=== PATIENT | female | born 1975 ===

== ENCOUNTER 2018-01-20 21:17 | Inpatient (IN) | payer SELFPAY ==
[2018-01-20] MEDS ORDERED: Piperacillin/Tazobact 3.375 GM in Sodium Chloride 0.9% 100 ML IV STA (22:03)
[2018-01-20] MEDS ORDERED: Sodium Chloride 0.9% 1,000 ML IV STA (22:28)
--- NOTE | 2018-01-20 22:45 | ED PDOC ---
Lower Extremity Pain/Injury Time Seen by Provider: 01/20/18 21:44 Chief Complaint (Nursing): Abnormal Skin Integrity Chief Complaint (Provider): Fever, and left lower extrm swelling History Per: Patient History/Exam Limitations: no limitations Onset/Duration Of Symptoms: Days (x2 ) Current Symptoms Are (Timing): Still Present Additional Complaint(s): Petra Blank is a 42 year old female, with no significant past medical history, who presents to the emergency department complaining of fever and left lower extremity swelling onset for x2 days. Patient states lower extremities are painful and warm to touch. She reports developing fever and chills afterwards. Patient is undomiciled. She denies any injuries. No further medical complaints. PMD: None provided. Past Medical History Reviewed: Historical Data, Nursing Documentation, Vital Signs Vital Signs: Last Vital Signs Temp 102.1 F H 01/20/18 21:33 Pulse 104 H 01/20/18 21:33 Resp 16 01/20/18 21:33 BP 121/67 01/20/18 21:33 Pulse Ox 98 01/20/18 21:33 - Medical History PMH: No Chronic Diseases - Surgical History Surgical History: No Surg Hx - Family History Family History: States: Unknown Family Hx - Home Medications Home Medications: Ambulatory Orders Medication Instructions Recorded No Known Home Med 01/21/18 - Allergies Allergies/Adverse Reactions: Allergies Allergy/AdvReac Type Severity Reaction Status Date / Time No Known Allergies Allergy Verified 01/20/18 21:33 Review of Systems ROS Statement: Except As Marked, All Systems Reviewed And Found Negative Constitutional: Positive for: Fever, Chills Musculoskeletal: Positive for: Leg Pain (left leg, redness and swelling) Physical Exam - Reviewed Nursing Documentation Reviewed: Yes Vital Signs Reviewed: Yes - Physical Exam Appears: Positive for: Non-toxic. Negative for: Well (febrile) Head Exam: Positive for: ATRAUMATIC, NORMOCEPHALIC Skin: Positive for: Normal Color, Warm, Dry. Negative for: Rash Eye Exam: Positive for: Normal appearance, EOMI, PERRL Neck: Positive for: Painless ROM Cardiovascular/Chest: Positive for: Tachycardia. Negative for: Murmur Respiratory: Positive for: Normal Breath Sounds. Negative for: Respiratory Distress Pulses-Dorsalis Pedis (L): 2+ Pulses-Dorsalis Pedis (R): 2+ Gastrointestinal/Abdominal: Positive for: Normal Exam, Soft. Negative for: Tenderness Back: Negative for: L CVA Tenderness, R CVA Tenderness, Vertebral Tenderness Extremity: Positive for: Normal ROM (lower extremities), Capillary Refill (< 2sec to toes), Swelling (left lower extremity edemitus. Tibial surface ecchymotic and erythematous.). Negative for: Deformity, Other (Chang's sign negative) Neurologic/Psych: Positive for: Alert, Oriented. Negative for: Motor/Sensory Deficits - Laboratory Results Result Diagrams: 01/21/18 05:40 01/21/18 05:40 - ECG O2 Sat by Pulse Oximetry: 98 (RA) Pulse Ox Interpretation: Normal Medical Decision Making Medical Decision Making: Time: 21:44 Initial Impression: 42 y/o female with fever and left lower extremity cellulitis. Initial Plan: --CMP --Lact Acid, Plasma --Urine --Urine dipstick --CBC w/ differential --PTT --PT --Sodium Chloride 1,000 ml IV 1,000 mls/hr --Toradol 15 mg IV --Tylenol 325mg tab 975 mg PO --Vancomycin Inj 1 gm Sodium Chloride 0.9% 250 ml IVPB --Zosyn 3.375 gm Sodium Chloride 0.9% 100 ml IV --Blood culture --Urine culture --Urinalysis --Duplex Lower Extremity Vein Left [US] --Reevaluation Time: 23:00 Duplex Lower Extremity Vein Left [US] FINDINGS: Deep veins: Unremarkable. No DVT in the visualized common femoral, femoral, proximal deep femoral or popliteal veins. The veins demonstrate normal color flow, are normally compressible, with normal phasic flow and/or augmentation response. Soft tissues: Nonspecific enlarged left groin lymph node measuring 2.1 x 1.0 x 4.0 cm. No popliteal cyst. IMPRESSION: No left lower extremity evidence of deep venous thrombosis. Nonspecific left groin lymph node. Time: 23:54 --Patient's US and labs reviewed. Labs show significant elevation of WBC count. Patient will be admitted for treatment of cellulitis and lymphangitis under Dr. Huertas, the hospitalist veterans contact representative. ----- Scribe Attestation: Documented by Omi Black, acting as a scribe for Ananth Elizabeth MD. Provider Scribe Attestation: All medical record entries made by the Scribe were at my direction and personally dictated by me. I have reviewed the chart and agree that the record accurately reflects my personal performance of the history, physical exam, medical decision making, and the department course for this patient. I have also personally directed, reviewed, and agree with the discharge instructions and disposition. Disposition - Clinical Impression Clinical Impression: Cellulitis of left lower extremity - Patient ED Disposition Is Patient to be Admitted: Yes Discussed With : Aubrey Huertas - Disposition Disposition Time: 23:54 Condition: FAIR - Pt Status Changed To: Hospital Disposition Of: Inpatient - Admit Certification Admit to Inpatient:: After my assessment, the patient will require hospitalization for at least two midnights. This is because of the severity of symptoms shown, intensity of services needed, and/or the medical risk in this patient being treated as an outpatient.
--- NOTE | 2018-01-20 23:00 | US ---
EXAM: US Duplex Left Lower Extremity Veins CLINICAL HISTORY: 42 years old, female; Signs and symptoms; Swelling of limb; Lower extremity, left; Additional info: Leg swelling TECHNIQUE: Real-time duplex ultrasound scan of the left lower extremity veins integrating B-mode two-dimensional vascular structure, Doppler spectral analysis, color flow Doppler imaging and compression. COMPARISON: No relevant prior studies available. FINDINGS: Deep veins: Unremarkable. No DVT in the visualized common femoral, femoral, proximal deep femoral or popliteal veins. The veins demonstrate normal color flow, are normally compressible, with normal phasic flow and/or augmentation response. Soft tissues: Nonspecific enlarged left groin lymph node measuring 2.1 x 1.0 x 4.0 cm. No popliteal cyst. IMPRESSION: No left lower extremity evidence of deep venous thrombosis. Nonspecific left groin lymph node.
[2018-01-20 23:02] LABS: SQUAMOUS EPITHIAL 4 /hpf (0-5); URINE BILIRUBIN NEGATIVE (NEGATIVE); URINE BLOOD SMALL (NEGATIVE); URINE CLARITY CLOUDY (Clear); URINE COLOR AMBER (YELLOW); URINE GLUCOSE (UA) NEG (Normal); URINE LEUKOCYTE ESTERASE NEG Leu/uL (Negative); URINE PROTEIN 100 mg/dL (NEGATIVE)
[2018-01-20 23:19] LABS: BASO % 0.2 % (0.0-2.0); HEMOGLOBIN 14.7 g/dL (12.0-16.0); LYMPH # 0.7 K/uL (1.0-4.3); LYMPH % 4.5 % (20.0-40.0); MEAN CELL VOLUME 81.2 fl (81.0-99.0); MEAN CORPUSCULAR HEMOGLOBIN 27.5 pg (27.0-31.0); MEAN CORPUSCULAR HGB CONC 33.9 g/dL (33.0-37.0); MEAN PLATELET VOLUME 8.5 fl (7.2-11.7); MONO # 0.6 K/uL (0.0-0.8); MONO % 3.8 % (0.0-10.0); NEUT # 14.9 K/uL (1.8-7.0); NEUT % 91.5 % (50.0-75.0); NRBC % 0.1 % (0.0-0.0); PLATELET COUNT 250 K/uL (130-400); RBC 5.35 Mil/uL (3.80-5.20); RED CELL DISTRIBUTION WIDTH 14.6 % (11.5-14.5); WHITE BLOOD COUNT 16.3 K/uL (4.8-10.8)
[2018-01-20 23:31] LABS: ALBUMIN 4.1 g/dL (3.5-5.0); ALT/SGPT 33 U/L (9-52); AST/SGOT 32 U/L (14-36); BLOOD UREA NITROGEN 17 mg/dl (7-17); GFR AFRICAN-AMERICAN > 60; GFR NON-AFRICAN AMERICAN > 60
[2018-01-20 23:49] LABS: INR 1.3 (0.9-1.2); PARTIAL THROMBOPLASTIN TIME 29.7 Seconds (25.6-37.1); PROTHROMBIN TIME 14.1 Seconds (9.8-13.1)
[2018-01-21 01:07] LABS: ANISOCYTOSIS SLIGHT; BANDS 5 % (0-2); BASOPHIL 1 % (0-2); HYPOCHROMIC SLIGHT; LYMPHOCYTE 7 % (20-50); MONOCYTE 2 % (0-10); NEUTROPHIL 85 % (42-75); PLATELET ESTIMATE NORMAL (NORMAL); STOMATOCYTES SLIGHT; TEARDROP CELLS SLIGHT; TOTAL CELLS COUNTED 100
[2018-01-21] MEDS: Sodium Chloride 0.9% 1,000 ML IV SCH ×3 (01:18→19:42)
[2018-01-21] MEDS ORDERED: Potassium Chloride 20 mEq ER Tab PO ONE (02:06)
--- NOTE | 2018-01-21 02:47 | CP.PCM.HP ---
History of Present Illness - History of Present Illness History of Present Illness: CC: left leg pain This is a 42 yo homeless female who denies any past medical history, presenting to the ED with the complaint of fever, chills, and left lower extremity, swelling, and pain for the last 2 days. She states that the left leg swelling began abruptly, accompanied by a large red area. She has never had this before. She denies any injury/trauma to the area. In the ED, the patient was found to have large area of cellulitis of the left anterior tibial area with significant erythema. There is no fluctuance to suggest an abscess. The patient was also found to have a fever of 102.1, WBC count of 16.3 with 5 bands. Patient was also found to have mildly depressed potassium of 3.3. The patient is being admitted for left lower extremity cellulitis with further infectious workup to be obtained in AM. Patient denies chest pain, shortness of breath, nausea, vomiting, diarrhea, headache. All of the patient's questions were answered at the bedside. PMD: None Present on Admission - Present on Admission Any Indicators Present on Admission: No History of DVT/PE: No History of Uncontrolled Diabetes: No Review of Systems - Review of Systems Review of Systems: A 12 point review of systems was conducted and found to be negative other than what was mentioned in the HPI. Past Patient History - Infectious Disease Hx of Infectious Diseases: None - Past Medical History & Family History Past Medical History?: No Past Family History: Reviewed and not pertinent - Past Social History Smoking Status: Never Smoked Chewing Tobacco Use: No Cigar Use: No Alcohol: None Drugs: Denies Home Situation {Lives}: Homeless - PSYCHIATRIC Hx Substance Use: No - SURGICAL HISTORY Hx Surgeries: No - ANESTHESIA Hx Anesthesia: No Meds Allergies/Adverse Reactions: Allergies Allergy/AdvReac Type Severity Reaction Status Date / Time No Known Allergies Allergy Verified 01/20/18 21:33 Physical Exam - Additional Findings Additional findings: Physical exam: Constitutional- cooperative, awake, alert Head- NCAT, PERRL Eye- PERRL, EOMI ENT- normal exam, MMM. Neck- normal inspection, supple, no JVD Respiratory- CTAB, no wheezes rales rhonchi Cardiovascular- RRR, +S1, +S2 no MRG GI/Abdominal- normal bowel sounds, soft, no mass, no hsm Skin- warm, dry Extremities Exam- + Large erythematous, warm area without fluctuance, consistent with cellulitis measuring approx 7 cm x 4 cm at the anterior tibial area of the left leg. normal capillary refill, normal inspection Neurological Exam- alert, awake, oriented Psych- normal mood, normal affect Results - Vital Signs Recent Vital Signs: Last Vital Signs Temp 98.8 F 01/21/18 01:38 Pulse 90 01/21/18 01:38 Resp 16 01/20/18 21:33 BP 104/52 L 01/21/18 01:38 Pulse Ox 98 01/20/18 23:59 - Labs Result Diagrams: 01/20/18 23:15 01/20/18 23:15 Labs: Laboratory Results - last 24 hr 01/20/18 01/20/18 01/20/18 22:50 23:15 23:15 WBC 16.3 H RBC 5.35 H Hgb 14.7 Hct 43.4 MCV 81.2 MCH 27.5 MCHC 33.9 RDW 14.6 H Plt Count 250 MPV 8.5 Neut % (Auto) 91.5 H Lymph % (Auto) 4.5 L [place] % (Auto) 3.8 Eos % (Auto) 0.0 Baso % (Auto) 0.2 Neut # (Auto) 14.9 H Lymph # (Auto) 0.7 L [place] # (Auto) 0.6 Eos # (Auto) 0.0 Baso # (Auto) 0.0 Neutrophils % (Manual) 85 H Band Neutrophils % 5 H Lymphocytes % (Manual) 7 L Monocytes % (Manual) 2 Basophils % (Manual) 1 Platelet Estimate Normal Hypochromasia (manual) Slight Anisocytosis (manual) Slight Tear Drop Cells Slight Stomatocytes Slight PT INR APTT Sodium 134 Potassium 3.3 L Chloride 95 L Carbon Dioxide 27 Anion Gap 15 BUN 17 Creatinine 0.9 Est GFR ( Amer) > 60 Est GFR (Non-Af Amer) > 60 Random Glucose 115 H Lactic Acid Calcium 9.0 Total Bilirubin 0.6 AST 32 ALT 33 Alkaline Phosphatase 73 Total Protein 8.0 Albumin 4.1 Globulin 4.0 H Albumin/Globulin Ratio 1.0 Urine Color Kathrine Urine Clarity Cloudy Urine pH 5.0 Ur Specific [place] 1.033 H Urine Protein 100 Urine Glucose (UA) Neg Urine Ketones 80 Urine Blood Small Urine Nitrate Negative Urine Bilirubin Negative Urine Urobilinogen 4.0 H Ur Leukocyte Esterase Neg Urine RBC (Auto) 4 H Urine Microscopic WBC 3 Ur Squamous Epith Cells 4 Hyaline Casts 3-5 H 01/20/18 01/20/18 23:15 23:15 WBC RBC Hgb Hct MCV MCH MCHC RDW Plt Count MPV Neut % (Auto) Lymph % (Auto) [place] % (Auto) Eos % (Auto) Baso % (Auto) Neut # (Auto) Lymph # (Auto) [place] # (Auto) Eos # (Auto) Baso # (Auto) Neutrophils % (Manual) Band Neutrophils % Lymphocytes % (Manual) Monocytes % (Manual) Basophils % (Manual) Platelet Estimate Hypochromasia (manual) Anisocytosis (manual) Tear Drop Cells Stomatocytes PT 14.1 H INR 1.3 H APTT 29.7 Sodium Potassium Chloride Carbon Dioxide Anion Gap BUN Creatinine Est GFR ( Amer) Est GFR (Non-Af Amer) Random Glucose Lactic Acid 1.1 Calcium Total Bilirubin AST ALT Alkaline Phosphatase Total Protein Albumin Globulin Albumin/Globulin Ratio Urine Color Urine Clarity Urine pH Ur Specific [place] Urine Protein Urine Glucose (UA) Urine Ketones Urine Blood Urine Nitrate Urine Bilirubin Urine Urobilinogen Ur Leukocyte Esterase Urine RBC (Auto) Urine Microscopic WBC Ur Squamous Epith Cells Hyaline Casts Assessment & Plan - Assessment and Plan (Free Text) Plan: ASSESSMENT/PLAN 42 yo homeless female admitted for cellulitis of the left lower extremity 1) Cellulitis of the left lower extremity, with fever 102, bandemia,and leukocytosis - Admit to med/surg - consultation with Dr. Alfredo in AM - Vancomycin 1 gram IVPB q 12 hours - Rocephin 1 gram IVPB - Blood cultures pending - Repeat labs in AM - regular diet - Pain control with toradol - Tylenol PRN for fever - Monitor vitals closely 2) Hypokalemia- acute - due to poor gi intake - replete po 3) DVT prophylaxis - heparin sq
[2018-01-21 06:02] LABS: HEMOGLOBIN 13.1 g/dL (12.0-16.0); MEAN CELL VOLUME 82.8 fl (81.0-99.0); MEAN CORPUSCULAR HEMOGLOBIN 27.5 pg (27.0-31.0); MEAN CORPUSCULAR HGB CONC 33.1 g/dL (33.0-37.0); RBC 4.76 Mil/uL (3.80-5.20); RED CELL DISTRIBUTION WIDTH 14.5 % (11.5-14.5); WHITE BLOOD COUNT 14.4 K/uL (4.8-10.8)
[2018-01-21 06:21] LABS: BLOOD UREA NITROGEN 18 mg/dl (7-17); GFR AFRICAN-AMERICAN > 60; GFR NON-AFRICAN AMERICAN > 60
--- NOTE | 2018-01-21 07:46 | RAD ---
HISTORY: admit COMPARISON: No prior. FINDINGS: LUNGS: No active pulmonary disease. PLEURA: No significant pleural effusion identified, no pneumothorax apparent. CARDIOVASCULAR: Normal. OSSEOUS STRUCTURES: No significant abnormalities. VISUALIZED UPPER ABDOMEN: Normal. OTHER FINDINGS: None. IMPRESSION: No acute cardiopulmonary disease appreciated.
--- NOTE | 2018-01-21 18:35 | CP.PCM.CON ---
History of Present Illness - History of Present Illness History of Present Illness: 42 yo homeless female who denies any past medical history, presenting to the ED with the complaint of fever, chills, and left lower extremity, swelling, and pain for the last 2 days. She states that the left leg swelling began abruptly, accompanied by a large red area. She has never had this before. She denies any injury/trauma to the area. In the ED, the patient was found to have large area of cellulitis of the left anterior tibial area with significant erythema. There is no fluctuance to suggest an abscess. The patient was also found to have a fever of 102.1, WBC count of 16.3 with 5 bands. Patient was also found to have mildly depressed potassium of 3.3. The patient is being admitted for left lower extremity cellulitis with further infectious workup to be obtained in AM. Patient denies chest pain, shortness of breath, nausea, vomiting, diarrhea, headache. All of the patient's questions were answered at the bedside. PMD: None Present on Admission - Present on Admission Any Indicators Present on Admission: No History of DVT/PE: No History of Uncontrolled Diabetes: No Review of Systems - Review of Systems Review of Systems: A 12 point review of systems was conducted and found to be negative other than what was mentioned in the HPI. Review of Systems - Review of Systems All systems: reviewed and no additional remarkable complaints except - Constitutional Constitutional: As Per HPI Past Patient History - Infectious Disease Hx of Infectious Diseases: None - Past Medical History & Family History Past Medical History?: No - Past Social History Smoking Status: Never Smoked - MUSCULOSKELETAL/RHEUMATOLOGICAL Hx Falls: No - PSYCHIATRIC Hx Substance Use: No - SURGICAL HISTORY Hx Surgeries: No - ANESTHESIA Hx Anesthesia: No Meds Allergies/Adverse Reactions: Allergies Allergy/AdvReac Type Severity Reaction Status Date / Time No Known Allergies Allergy Verified 01/20/18 21:33 - Medications Medications: Current Medications Acetaminophen (Tylenol 325mg Tab) 650 mg PO Q6 PRN PRN Reason: Fever >100.4 F Last Admin: 01/21/18 15:59 Dose: 650 mg Heparin Sodium (Porcine) (Heparin) 5,000 units SC Q12 DRU PRN Reason: Protocol Last Admin: 01/21/18 09:21 Dose: 5,000 units Sodium Chloride (Sodium Chloride 0.9%) 1,000 mls @ 125 mls/hr IV .Q8H DRU Last Admin: 01/21/18 07:44 Dose: 125 mls/hr Vancomycin HCl 1 gm/ Sodium (Chloride) 250 mls @ 166.667 mls/hr IVPB Q12 DRU PRN Reason: Protocol Last Admin: 01/21/18 09:26 Dose: 166.667 mls/hr Ceftriaxone Sodium 1 gm/ (Sodium Chloride) 100 mls @ 100 mls/hr IVPB DAILY DRU PRN Reason: Protocol Last Admin: 01/21/18 09:25 Dose: 100 mls/hr Ketorolac Tromethamine (Toradol) 15 mg IVP Q6 PRN PRN Reason: Pain, moderate (4-7) Physical Exam - Constitutional Appears: Chronically Ill - Head Exam Head Exam: NORMAL INSPECTION - Eye Exam Eye Exam: PERRL - ENT Exam ENT Exam: Mucous Membranes Dry - Neck Exam Neck exam: Negative for: Lymphadenopathy - Respiratory Exam Respiratory Exam: Decreased Breath Sounds - Cardiovascular Exam Cardiovascular Exam: REGULAR RHYTHM - GI/Abdominal Exam GI & Abdominal Exam: Diminished Bowel Sounds - Rectal Exam Rectal Exam: Deferred - Exam Exam: NORMAL INSPECTION - Extremities Exam Extremities exam: Positive for: pedal edema, pedal pulses present - Back Exam Back exam: absent: CVA tenderness (L), CVA tenderness (R) - Neurological Exam Neurological exam: Alert, CN II-XII Intact, Oriented x3, Reflexes Normal - Psychiatric Exam Psychiatric exam: Normal Mood - Skin Skin Exam: Dry, Erythema Results - Vital Signs Recent Vital Signs: Last Vital Signs Temp 103 F H 01/21/18 16:31 Pulse 102 H 01/21/18 16:31 Resp 18 01/21/18 16:31 BP 125/88 01/21/18 16:31 Pulse Ox 98 01/21/18 16:31 - Labs Result Diagrams: 01/22/18 05:35 01/22/18 05:35 Labs: Laboratory Results - last 24 hr 01/20/18 01/20/18 01/20/18 22:50 23:15 23:15 WBC 16.3 H RBC 5.35 H Hgb 14.7 Hct 43.4 MCV 81.2 MCH 27.5 MCHC 33.9 RDW 14.6 H Plt Count 250 MPV 8.5 Neut % (Auto) 91.5 H Lymph % (Auto) 4.5 L [place] % (Auto) 3.8 Eos % (Auto) 0.0 Baso % (Auto) 0.2 Neut # (Auto) 14.9 H Lymph # (Auto) 0.7 L [place] # (Auto) 0.6 Eos # (Auto) 0.0 Baso # (Auto) 0.0 Neutrophils % (Manual) 85 H Band Neutrophils % 5 H Lymphocytes % (Manual) 7 L Monocytes % (Manual) 2 Basophils % (Manual) 1 Platelet Estimate Normal Hypochromasia (manual) Slight Anisocytosis (manual) Slight Tear Drop Cells Slight Stomatocytes Slight PT INR APTT Sodium 134 Potassium 3.3 L Chloride 95 L Carbon Dioxide 27 Anion Gap 15 BUN 17 Creatinine 0.9 Est GFR ( Amer) > 60 Est GFR (Non-Af Amer) > 60 Random Glucose 115 H Lactic Acid Calcium 9.0 Total Bilirubin 0.6 AST 32 ALT 33 Alkaline Phosphatase 73 Total Protein 8.0 Albumin 4.1 Globulin 4.0 H Albumin/Globulin Ratio 1.0 Urine Color Kathrine Urine Clarity Cloudy Urine pH 5.0 Ur Specific [place] 1.033 H Urine Protein 100 Urine Glucose (UA) Neg Urine Ketones 80 Urine Blood Small Urine Nitrate Negative Urine Bilirubin Negative Urine Urobilinogen 4.0 H Ur Leukocyte Esterase Neg Urine RBC (Auto) 4 H Urine Microscopic WBC 3 Ur Squamous Epith Cells 4 Hyaline Casts 3-5 H 01/20/18 01/20/18 01/21/18 23:15 23:15 05:40 WBC 14.4 H RBC 4.76 Hgb 13.1 Hct 39.4 MCV 82.8 MCH 27.5 MCHC 33.1 RDW 14.5 Plt Count 211 MPV Neut % (Auto) Lymph % (Auto) [place] % (Auto) Eos % (Auto) Baso % (Auto) Neut # (Auto) Lymph # (Auto) [place] # (Auto) Eos # (Auto) Baso # (Auto) Neutrophils % (Manual) Band Neutrophils % Lymphocytes % (Manual) Monocytes % (Manual) Basophils % (Manual) Platelet Estimate Hypochromasia (manual) Anisocytosis (manual) Tear Drop Cells Stomatocytes PT 14.1 H INR 1.3 H APTT 29.7 Sodium Potassium Chloride Carbon Dioxide Anion Gap BUN Creatinine Est GFR ( Amer) Est GFR (Non-Af Amer) Random Glucose Lactic Acid 1.1 Calcium Total Bilirubin AST ALT Alkaline Phosphatase Total Protein Albumin Globulin Albumin/Globulin Ratio Urine Color Urine Clarity Urine pH Ur Specific [place] Urine Protein Urine Glucose (UA) Urine Ketones Urine Blood Urine Nitrate Urine Bilirubin Urine Urobilinogen Ur Leukocyte Esterase Urine RBC (Auto) Urine Microscopic WBC Ur Squamous Epith Cells Hyaline Casts 01/21/18 05:40 WBC RBC Hgb Hct MCV MCH MCHC RDW Plt Count MPV Neut % (Auto) Lymph % (Auto) [place] % (Auto) Eos % (Auto) Baso % (Auto) Neut # (Auto) Lymph # (Auto) [place] # (Auto) Eos # (Auto) Baso # (Auto) Neutrophils % (Manual) Band Neutrophils % Lymphocytes % (Manual) Monocytes % (Manual) Basophils % (Manual) Platelet Estimate Hypochromasia (manual) Anisocytosis (manual) Tear Drop Cells Stomatocytes PT INR APTT Sodium 134 Potassium 3.3 L Chloride 100 Carbon Dioxide 28 Anion Gap 9 L BUN 18 H Creatinine 1.0 Est GFR ( Amer) > 60 Est GFR (Non-Af Amer) > 60 Random Glucose 96 Lactic Acid Calcium 8.0 L Total Bilirubin AST ALT Alkaline Phosphatase Total Protein Albumin Globulin Albumin/Globulin Ratio Urine Color Urine Clarity Urine pH Ur Specific [place] Urine Protein Urine Glucose (UA) Urine Ketones Urine Blood Urine Nitrate Urine Bilirubin Urine Urobilinogen Ur Leukocyte Esterase Urine RBC (Auto) Urine Microscopic WBC Ur Squamous Epith Cells Hyaline Casts Assessment & Plan (1) Cellulitis of left lower extremity Status: Acute
[2018-01-22] MEDS: Sodium Chloride 0.9% 1,000 ML IV SCH (00:30)
[2018-01-22 06:28] LABS: HEMOGLOBIN 12.6 g/dL (12.0-16.0); MEAN CELL VOLUME 81.2 fl (81.0-99.0); MEAN CORPUSCULAR HGB CONC 34.4 g/dL (33.0-37.0); RBC 4.5 Mil/uL (3.80-5.20); RED CELL DISTRIBUTION WIDTH 14.7 % (11.5-14.5); WHITE BLOOD COUNT 10.4 K/uL (4.8-10.8)
[2018-01-22 06:36] LABS: BLOOD UREA NITROGEN 10 mg/dl (7-17); CALCIUM 8.2 mg/dL (8.4-10.2); GFR AFRICAN-AMERICAN > 60; GFR NON-AFRICAN AMERICAN > 60
[2018-01-22 08:24] VITALS: BP 149/84; PULSE 83; RESP 20; TEMP 100.8; O2SAT 97
--- NOTE | 2018-01-22 11:16 | CP.PCM.CON ---
History of Present Illness - History of Present Illness History of Present Illness: 42 yo homeless female who denies any past medical history, presenting to the ED with the complaint of fever, chills, and left lower extremity, swelling, and pain for the last 2 days. She states that the left leg swelling began abruptly, accompanied by a large red area. She has never had this before. She denies any injury/trauma to the area. In the ED, the patient was found to have large area of cellulitis of the left anterior tibial area with significant erythema. There is no fluctuance to suggest an abscess. The patient was also found to have a fever of 102.1, WBC count of 16.3 with 5 bands. Patient was also found to have mildly depressed potassium of 3.3. The patient is being admitted for left lower extremity cellulitis with further infectious workup to be obtained in AM. Patient denies chest pain, shortness of breath, nausea, vomiting, diarrhea, headache. All of the patient's questions were answered at the bedside. PMD: None Present on Admission - Present on Admission Any Indicators Present on Admission: No History of DVT/PE: No History of Uncontrolled Diabetes: No Review of Systems - Review of Systems Review of Systems: A 12 point review of systems was conducted and found to be negative other than what was mentioned in the HPI. Past Patient History - Infectious Disease Hx of Infectious Diseases: None - Past Medical History & Family History Past Medical History?: No - Past Social History Smoking Status: Never Smoked - MUSCULOSKELETAL/RHEUMATOLOGICAL Hx Falls: No - PSYCHIATRIC Hx Substance Use: No - SURGICAL HISTORY Hx Surgeries: No - ANESTHESIA Hx Anesthesia: No Meds Allergies/Adverse Reactions: Allergies Allergy/AdvReac Type Severity Reaction Status Date / Time No Known Allergies Allergy Verified 01/20/18 21:33 - Medications Medications: Current Medications Heparin Sodium (Porcine) (Heparin) 5,000 units SC Q12 DRU PRN Reason: Protocol Last Admin: 01/22/18 09:02 Dose: 5,000 units Sodium Chloride (Sodium Chloride 0.9%) 1,000 mls @ 125 mls/hr IV .Q8H [facility] Last Admin: 01/22/18 00:30 Dose: Not Given Vancomycin HCl 1 gm/ Sodium (Chloride) 250 mls @ 166.667 mls/hr IVPB Q12 DRU PRN Reason: Protocol Last Admin: 01/22/18 09:01 Dose: 166.667 mls/hr Ceftriaxone Sodium 1 gm/ (Sodium Chloride) 100 mls @ 100 mls/hr IVPB DAILY DRU PRN Reason: Protocol Last Admin: 01/22/18 09:00 Dose: 100 mls/hr Ketorolac Tromethamine (Toradol) 15 mg IVP Q6 PRN PRN Reason: Pain, moderate (4-7) Physical Exam - Constitutional Appears: Chronically Ill - Head Exam Head Exam: ATRAUMATIC - Eye Exam Eye Exam: PERRL - ENT Exam ENT Exam: Mucous Membranes Dry - Neck Exam Neck exam: Negative for: Lymphadenopathy - Respiratory Exam Respiratory Exam: Decreased Breath Sounds - Cardiovascular Exam Cardiovascular Exam: REGULAR RHYTHM - GI/Abdominal Exam GI & Abdominal Exam: Diminished Bowel Sounds, Soft - Rectal Exam Rectal Exam: Deferred - Exam Exam: NORMAL INSPECTION - Extremities Exam Extremities exam: Positive for: pedal edema, pedal pulses present. Negative for : calf tenderness, tenderness - Back Exam Back exam: absent: CVA tenderness (L), CVA tenderness (R) - Neurological Exam Neurological exam: Alert, Oriented x3 - Psychiatric Exam Psychiatric exam: Normal Mood - Skin Skin Exam: Dry, Erythema Results - Vital Signs Recent Vital Signs: Last Vital Signs Temp 100.8 F H 01/22/18 08:59 Pulse 83 01/22/18 08:23 Resp 20 01/22/18 08:23 BP 149/84 01/22/18 08:23 Pulse Ox 97 01/22/18 08:23 - Labs Result Diagrams: 01/22/18 05:35 01/22/18 05:35 Labs: Laboratory Results - last 24 hr 01/22/18 01/22/18 05:35 05:35 WBC 10.4 RBC 4.50 Hgb 12.6 Hct 36.5 MCV 81.2 MCH 28.0 MCHC 34.4 RDW 14.7 H Plt Count 214 Sodium 138 Potassium 3.4 L Chloride 104 Carbon Dioxide 26 Anion Gap 11 BUN 10 Creatinine 0.7 Est GFR ( Amer) > 60 Est GFR (Non-Af Amer) > 60 Random Glucose 90 Calcium 8.2 L Assessment & Plan (1) Cellulitis of left lower extremity Status: Acute - Assessment and Plan (Free Text) Assessment: cont iv rx will follow with you
--- NOTE | 2018-01-22 11:54 | CP.PCM.DIS ---
Provider - Provider Date of Admission: 01/20/18 23:49 Attending physician: Butch Huertas DO Consults: Dr Alfredo Time Spent in preparation of Discharge (in minutes): 20 Diagnosis - Discharge Diagnosis (1) Cellulitis of left lower extremity Status: Acute Comment: received first doses of IV Rocephin and Vanco. signed out AMA the next day Hospital Course - Lab Results Lab Results: Micro Results 01/20/18 22:50 Urine Urine Culture - Final No Growth (<1,000 CFU/ML) 01/20/18 22:58 Blood Blood Culture - Preliminary NO GROWTH AFTER 24 HOURS 01/20/18 23:06 Blood Blood Culture - Preliminary NO GROWTH AFTER 24 HOURS Most Recent Lab Values WBC 10.4 K/uL (4.8-10.8) 01/22/18 05:35 RBC 4.50 Mil/uL (3.80-5.20) 01/22/18 05:35 Hgb 12.6 g/dL (12.0-16.0) 01/22/18 05:35 Hct 36.5 % (34.0-47.0) 01/22/18 05:35 MCV 81.2 fl (81.0-99.0) 01/22/18 05:35 MCH 28.0 pg (27.0-31.0) 01/22/18 05:35 MCHC 34.4 g/dL (33.0-37.0) 01/22/18 05:35 RDW 14.7 % (11.5-14.5) H 01/22/18 05:35 Plt Count 214 K/uL (130-400) 01/22/18 05:35 MPV 8.5 fl (7.2-11.7) 01/20/18 23:15 Neut % (Auto) 91.5 % (50.0-75.0) H 01/20/18 23:15 Lymph % (Auto) 4.5 % (20.0-40.0) L 01/20/18 23:15 [place] % (Auto) 3.8 % (0.0-10.0) 01/20/18 23:15 Eos % (Auto) 0.0 % (0.0-4.0) 01/20/18 23:15 Baso % (Auto) 0.2 % (0.0-2.0) 01/20/18 23:15 Neut # (Auto) 14.9 K/uL (1.8-7.0) H 01/20/18 23:15 Lymph # (Auto) 0.7 K/uL (1.0-4.3) L 01/20/18 23:15 [place] # (Auto) 0.6 K/uL (0.0-0.8) 01/20/18 23:15 Eos # (Auto) 0.0 K/uL (0.0-0.7) 01/20/18 23:15 Baso # (Auto) 0.0 K/uL (0.0-0.2) 01/20/18 23:15 Neutrophils % (Manual) 85 % (42-75) H 01/20/18 23:15 Band Neutrophils % 5 % (0-2) H 01/20/18 23:15 Lymphocytes % (Manual) 7 % (20-50) L 01/20/18 23:15 Monocytes % (Manual) 2 % (0-10) 01/20/18 23:15 Basophils % (Manual) 1 % (0-2) 01/20/18 23:15 Platelet Estimate Normal (NORMAL) 01/20/18 23:15 Hypochromasia (manual) Slight 01/20/18 23:15 Anisocytosis (manual) Slight 01/20/18 23:15 Tear Drop Cells Slight 01/20/18 23:15 Stomatocytes Slight 01/20/18 23:15 PT 14.1 Seconds (9.8-13.1) H 01/20/18 23:15 INR 1.3 (0.9-1.2) H 01/20/18 23:15 APTT 29.7 Seconds (25.6-37.1) 01/20/18 23:15 Sodium 138 mmol/l (132-148) 01/22/18 05:35 Potassium 3.4 MMOL/L (3.6-5.0) L 01/22/18 05:35 Chloride 104 mmol/L (98-107) 01/22/18 05:35 Carbon Dioxide 26 mmol/L (22-30) 01/22/18 05:35 Anion Gap 11 (10-20) 01/22/18 05:35 BUN 10 mg/dl (7-17) 01/22/18 05:35 Creatinine 0.7 mg/dl (0.7-1.2) 01/22/18 05:35 Est GFR ( Amer) > 60 01/22/18 05:35 Est GFR (Non-Af Amer) > 60 01/22/18 05:35 Random Glucose 90 mg/dL (65-105) 01/22/18 05:35 Lactic Acid 1.1 MMOL/L (0.7-2.1) 01/20/18 23:15 Calcium 8.2 mg/dL (8.4-10.2) L 01/22/18 05:35 Total Bilirubin 0.6 mg/dl (0.2-1.3) 01/20/18 23:15 AST 32 U/L (14-36) 01/20/18 23:15 ALT 33 U/L (9-52) 01/20/18 23:15 Alkaline Phosphatase 73 U/L (38-126) 01/20/18 23:15 Total Protein 8.0 G/DL (6.3-8.2) 01/20/18 23:15 Albumin 4.1 g/dL (3.5-5.0) 01/20/18 23:15 Globulin 4.0 gm/dL (2.2-3.9) H 01/20/18 23:15 Albumin/Globulin Ratio 1.0 (1.0-2.1) 01/20/18 23:15 Urine Color [place] (YELLOW) 01/20/18 22:50 Urine Clarity Cloudy (Clear) 01/20/18 22:50 Urine pH 5.0 (5.0-8.0) 01/20/18 22:50 Ur Specific [place] 1.033 (1.003-1.030) H 01/20/18 22:50 Urine Protein 100 mg/dL (NEGATIVE) 01/20/18 22:50 Urine Glucose (UA) Neg mg/dL (Normal) 01/20/18 22:50 Urine Ketones 80 mg/dL (NEGATIVE) 01/20/18 22:50 Urine Blood Small (NEGATIVE) 01/20/18 22:50 Urine Nitrate Negative (NEGATIVE) 01/20/18 22:50 Urine Bilirubin Negative (NEGATIVE) 01/20/18 22:50 Urine Urobilinogen 4.0 mg/dL (0.2-1.0) H 01/20/18 22:50 Ur Leukocyte Esterase Neg Eri/uL (Negative) 01/20/18 22:50 Urine RBC (Auto) 4 /hpf (0-3) H 01/20/18 22:50 Urine Microscopic WBC 3 /hpf (0-5) 01/20/18 22:50 Ur Squamous Epith Cells 4 /hpf (0-5) 01/20/18 22:50 Hyaline Casts 3-5 /hpf (0-2) H 01/20/18 22:50 - Hospital Course Hospital Course: 42 yo homeless female with no significant PMH came in to ER because of fever and chills associated with swollen and erythematous left leg. She was admitted with a diagnosis of cellulitis and started on IV Rocephin and Vanco. The next day patient refused further treatment claiming she was not improving and signed out AMA. Discharge Plan - Follow Up Plan Condition: FAIR Disposition: AGAINST MEDICAL ADVICE Instructions: Cellulitis (Skin Infection), Adult (DC) Referrals: Keegan Alfredo MD [Staff Provider] -
== END 2018-01-22 11:14 | disposition left against medical advice (07) | DRG 603 ==
LOC: H.ER 21:17 → H.ERHOLD 23:49 → H.MEDSURG1 01-21 02:33
PROVIDERS: ADMIT Internal Medicine; ATTEND Internal Medicine
DX: L03.116 Cellulitis of left lower limb (principal); E87.6 Hypokalemia; D72.825 Bandemia; Z59.0 Homelessness